=== PATIENT | female | born 1960 | race Caucasian/White ===

== ENCOUNTER 2019-11-20 10:36 | Inpatient (IN) | payer MEDICARE, SELFPAY ==
--- NOTE | ~2019-11-20 | US_ITS ---
EXAMINATION: US abdomen complete EXAM DATE: 11/22/2019 13:01 INDICATION: Pancreatitis, epigastric pain. TECHNIQUE: Multiple grayscale and Doppler images of the complete abdomen were obtained (by a technolo gist who performed the scan) and subsequently reviewed. There is no prior study for comparison. FINDINGS: The abdominal aorta is normal in caliber. Visualized portion IVC is patent. The pancreatic head a nd body are normal in appearance. The pancreatic tail is not visualized. The liver has normal echogenicity and contour. There are no focal liver lesions identified. There is no evidence of intrahepatic biliary duct dilation. Portal venous flow was seen in the hepatopedal , normal direction and has normal Doppler waveform. Common bile duct measures 5 mm, which is normal. The gallbladder wall is mildly thickened but only mi ldly distended. No sonographic evidence of pericholecystic fluid. There is cholelithiasis. Techno logist performing exam reports patient did not demonstrate sonographic Ibarra's sign. Please note th at this sign is less reliable in patients who have received pain medication. Right kidney: There is normal contour and echogenicity. It measures 10.8 x 5.0 x 4.7 centimeters. There are no focal renal lesions identified. There is no hydronephrosis. Left kidney: There is normal contour and echogenicity. It measures 11.3 x 3.9 x 5.2 centimeters. T here are no focal renal lesions identified. There is no hydronephrosis. The spleen measures 10.3 centimeters and is morphologically normal. IMPRESSION: Cholelithiasis, mild gallbladder wall thickening probably, could be partly under distenti on and/or reactive. No sonographic Ibarra's sign. If there is further clinical concern for cholecysti tis, consider HIDA scan. Reviewed, dictated and finalized at location B. IMPRESSION: Cholelithiasis, mild gallbladder wall thickening probably, could be partly under distention and/or reactive. No sonographic Ibarra's sign. If ther e is further clinical concern for cholecystitis, consider HIDA scan.
--- NOTE | ~2019-11-20 | CT_ITS ---
EXAMINATION: CT abdomen pelvis w con DATE: 11/20/2019 12:48 INDICATION: Abdomen pain. TECHNIQUE: Computed tomography (CT) of the abdomen and pelvis was performed with 100 cc Omnipaque 350 intravenous contrast. The dose-length product was 1477.12 mGy-cm. Automated exposure control and it erative reconstruction technique were employed. COMPARISON: No prior studies for comparison. FINDINGS: Lung bases are unremarkable. Heart size normal. No pleural or pericardial effusion. There are gallstones. The liver, spleen, pancreas, adrenal glands and right kidney are unremarkable. There is a subcentimeter hypodensity of the left kidney, most likely benign cysts. Nonobstructive bow el gas pattern. Colonic diverticulosis without evidence for diverticulitis. Bladder is unremarkable. No free air or free fluid. There is mild osteoarthritis of the hips. There is mild atherosclerosis. No lymphadenopathy. IMPRESSION: 1. No acute abdominal abnormality. 2: Cholelithiasis. Reviewed, dictated and finalized at location A.
[2019-11-20 11:14] VITALS: BP 142/78; PULSE 84; RESP 22; TEMP 36.6; O2SAT 97
--- NOTE | 2019-11-20 11:26 | ED.ABDPAIN ---
HPI - Abdominal Pain General Chief Complaint: Abdominal Pain Stated Complaint: abd pain Source: patient Mode of arrival: ambulatory Limitations: no limitations History of Present Illness HPI narrative: 59-year-old female with intense upper abdominal pain. Onset 2 days ago after eating fried chicken. Pain has been persistent, described as pressure and associated with nausea and multiple episodes of vomiting. Has vomited x3 today. She denies diarrhea. The pain is nonradiating; she has chronic upper back pain which has not recently changed. She has not had this before. Related Data Home Medications Medication Instructions Recorded Confirmed No Home Medications 11/20/19 11/20/19 Allergies Allergy/AdvReac Type Severity Reaction Status Date / Time No Known Allergies Allergy Verified 11/20/19 11:19 Review of Systems Constitutional: Constitutional: Denies chills and Denies fever(s) Eyes: Eyes: Denies change in vision ENT: Denies dysphagia Comments: chronic sore throat and acidic taste in mouth Cardiovascular: Cardiovascular: Denies chest pain Respiratory: Respiratory: Reports dyspnea (after vomiting only) Gastrointestinal: Gastrointestinal: Denies diarrhea Genitourinary: Genitourinary: Denies dysuria Musculoskeletal: Musculoskeletal: Denies joint swelling Integumentary/Breasts: Skin/Breast: Denies rash Neurologic: Reports headache(s) (chronic, no recent change) Psychiatric: Psychiatric: Reports depression (stable) Endocrine: Endocrine: Reports polydipsia Hematologic/Lymphatic: Hematologic/Lymphatic: Denies easy bleeding PMFSH Past Medical History Medical History (Updated 11/20/19 @ 14:58 by Damion Escamilla MD) Hypertension Surgical History Surgical History (Updated 11/20/19 @ 11:29 by Damion Escamilla MD) H/O: section Social History Social History (Updated 11/20/19 @ 14:45 by Damion Escamilla MD) Smoking packs per day: 1 Smoking cigarettes per day: 20.0 Years smoked: 40 Smoking pack-years: 40.00 Smoking status: Current every day smoker Alcohol intake: never Exam Narrative: Exam Narrative: Obese female appears uncomfortable. Const: Orientation/consciousness: patient oriented x3 HENMT: Mouth: Yes moist mucous membranes Eyes: Conjunctivae: conjunctivae normal Neck: Neck: no lymphadenopathy Chest: Chest palpation & inspection: normal inspection of the chest Resp: Effort & Inspection: normal respiratory effort Auscultation: clear to auscultation bilaterally Cardio: Rate: regular rate Rhythm: regular rhythm GI: GI Palp: Yes Tenderness to palpation present (GI) (epigastric, RLQ), Yes Guarding due to palpation present (GI) and No Rigid due to palpation Percussion: Yes normal to percussion Auscultation: absent bowel sounds : General: Yes no CVA tenderness Skin: General skin exam: normal color Rashes: no rashes Neuro: General: patient oriented x3 Extrem: General: normal to inspection, no pedal edema and edema Psych: Appearance: grossly normal Mental Status: mental status grossly normal Thought content: Yes Normal thought content present Course Course Emergency Course: Pain relief with morphine 4 mg IV with relief of nausea with ondansatron. At 2:30 PM pain rated #5-6/10. Dx. of acute pancreatitis explained. No previous hx of this. Does not drink alcohol. Vital Signs Vital signs: Vital Signs Temperature 36.6 C 11/20/19 11:14 Pulse Rate 84 11/20/19 11:14 Respiratory Rate 22 H 11/20/19 11:14 Blood Pressure 142/78 H 11/20/19 11:14 Pulse Oximetry 97 11/20/19 11:14 Temperature 36.6 C 11/20/19 11:14 Pulse Rate 75 11/20/19 13:33 Respiratory Rate 18 11/20/19 13:33 Blood Pressure 159/87 H 11/20/19 13:33 Pulse Oximetry 95 11/20/19 13:33 MDM - Abdominal Pain MDM Narrative Medical decision making narrative: Lipase over 12,000. Mild increase in AST/ALT/alk phos also related to pancreatitis. CT of abd/pel
[2019-11-20] MEDS: ONDANSETRON INJ 4 MG/2 ML VIAL IV PUSH (11:40)
[2019-11-20] MEDS: MORPHINE SULFATE 4 MG/ML INJ IV PUSH ×2 (11:40→14:25)
[2019-11-20] MEDS: LACTATED RINGERS 1,000 ML 999 ML IV CONT (11:42)
[2019-11-20 11:43] LABS: Basophils Absolute Auto 0.06 K/mm3 (0.00-0.10); Basophils Percent Auto 0.7 % (0.0-1.0); Eosinophils Absolute Auto 0.02 K/mm3 (0.02-0.50); Eosinophils Percent Auto 0.2 % (1.0-6.0); Hematocrit 40.8 % (35.0-49.0); Hemoglobin 13.5 g/dL (12.0-15.0); Immature Granulocyte Absolute 0.04 K/mm3 (0.00-0.00); Immature Granulocyte Percent A 0.4 % (0.0-0.0); Lymphocytes Absolute Auto 1.13 K/mm3 (1.10-4.50); Lymphocytes Percent Auto 12.6 % (18.0-42.0); Mean Corpuscular HGB Conc 33.1 g/dL (32.0-36.0); Mean Corpuscular Hemoglobin 32.5 pg (27.0-31.0); Mean Corpuscular Volume 98.1 fL (78.0-102.0); Mean Platelet Volume 9.7 fl (9.2-11.8); Monocytes Absolute Auto 0.57 K/mm3 (0.10-0.90); Monocytes Percent Auto 6.3 % (2.0-11.0); Neutrophils Absolute Auto 7.2 K/mm3 (1.7-7.2); Neutrophils Percent Auto 79.8 % (50.0-70.0); Platelet Count Result 262 K/mm3 (150-420); Red Blood Count 4.16 M/mm3 (4.20-5.40); Red Cell Distribution Width 13.6 % (11.6-14.4)
[2019-11-20 11:46] LABS: Add Urine Microscopic? YES; Appearance Urine Cloudy (Clear); Bilirubin Urine 1+ (Negative); Blood Urine Negative (Negative); Color Urine Amber (Yellow); Glucose Urine UA Negative (Negative); Ketones Urine Negative (Negative); Leukocyte Esterase Ur Negative (Negative); Nitrate Urine Negative (Negative); Protein Urine 1+ (Negative); Specific Grav Ur 1.015 (1.010-1.020)
[2019-11-20 11:59] LABS: RBC Urine None seen /hpf (0-2); Squamous Epithelial Cell Urine Many /hpf (Few); WBC Urine None seen /hpf (0-3)
[2019-11-20 12:00] LABS: Bacteria Urine 2+ /hpf; Mucus Urine Moderate /lpf
[2019-11-20 12:05] LABS: Alanine Aminotransferase 114 U/L (14-59); Albumin Level 3.3 g/dL (3.4-5.0); Alkaline Phosphatase 137 U/L (46-116); Anion Gap 11.1 mmol/L (7-16); Bilirubin,Total 1.1 mg/dL (0.00-1.00); Blood Urea Nitrogen 13 mg/dL (7-18); Calcium 8.7 mg/dL (8.5-10.1); Carbon Dioxide 29 mmol/L (21-32); Chloride 102 mmol/L (98-108); Estimated CRCL calculation 77 ml/min; Estimated Glomerular Filt Rate > 60; Glucose 122 mg/dL (70-99); Osmolality Calculated 287 mOsm/kg (285-295); Potassium 4.1 mmol/L (3.5-5.1); Sodium 138 mmol/L (136-145); Total Protein 7.2 g/dL (6.4-8.2)
[2019-11-20 12:06] LABS: Lipase 12012 U/L (73-393)
[2019-11-20 12:07] LABS: Aspartate Amino Transferase 195 U/L (15-37)
--- NOTE | 2019-11-20 13:16 | PC.NURSE ---
pt ambulatory to bathroom.
[2019-11-20 13:33] VITALS: BP 159/87; PULSE 75; RESP 18; O2SAT 95
--- NOTE | 2019-11-20 14:41 | PC.NURSE ---
RN CALLED 2ND FLOOR, JACKY ROSADO RN TO REQUEST INPATIENT ROOM. ROOM 205B PROVIDED AT 1440. REGISTRATION NOTIFIED.
[2019-11-20 15:30] VITALS: RESP 18; O2SAT 98
[2019-11-20 15:47] VITALS: BP 140/74; PULSE 68; RESP 18; TEMP 36.6; O2SAT 97
--- NOTE | 2019-11-20 16:00 | ADMGEN ---
This patient, Teresa Dhillon, was admitted to 2nd Floor Room 205-2. Patient/family oriented to hospital policies and general routines including ID bracelet, bed and alarms, visiting hours, pain management, procedures, bathroom and other care routines, personal items, smoking policy, room service/diet, and visiting hours. Valuables list has been completed. Information on how to activate the Rapid Response Team has been discussed. Patient/Family are encouraged to report perceived risks to care and to ask questions if they do not understand what they are told or what they should do. Full admission r/t pancreatitis Lipase elevated 12,012. Reports first time for this. Started last after eating fried chicken. Rates pain 3 after pain medication given x 2 in in ED. NPO status. LR at 250 ml/hr.
[2019-11-20 16:04] VITALS: BMI 42.7
[2019-11-20] MEDS: PANTOPRAZOLE SODIUM IV 40 MG VIAL IV PUSH (16:15)
[2019-11-20] MEDS: LACTATED RINGERS 1,000 ML 250 ML IV CONT ×2 (16:15→20:03)
[2019-11-20] MEDS: HYDROMORPHONE HCL 2 MG/ML VIAL 0.5 MG IV PUSH ×2 (16:25→20:29)
[2019-11-20 20:00] VITALS: BP 155/68; PULSE 66; RESP 20; TEMP 36.8; O2SAT 96
[2019-11-20 22:00] VITALS: BP 152/74; PULSE 70; RESP 20; TEMP 36.9; O2SAT 96
[2019-11-21] VITALS: BP 149/70; PULSE 74; RESP 20; TEMP 36.9; O2SAT 94
[2019-11-21] MEDS: LACTATED RINGERS 1,000 ML 250 ML IV CONT (00:18)
[2019-11-21] MEDS: HYDROMORPHONE HCL 2 MG/ML VIAL 0.5 MG IV PUSH ×2 (01:30→09:31)
--- NOTE | 2019-11-21 02:53 | PC.NURSE ---
Dr. Escamilla called for clarification of orders; New orders received and noted.
[2019-11-21] MEDS: LACTATED RINGERS 1,000 ML 150 ML IV CONT ×3 (04:48→18:32)
[2019-11-21 06:52] LABS: Basophils Absolute Auto 0.04 K/mm3 (0.00-0.10); Basophils Percent Auto 0.5 % (0.0-1.0); Eosinophils Absolute Auto 0.04 K/mm3 (0.02-0.50); Eosinophils Percent Auto 0.5 % (1.0-6.0); Hematocrit 36.7 % (35.0-49.0); Hemoglobin 12.1 g/dL (12.0-15.0); Immature Granulocyte Absolute 0.04 K/mm3 (0.00-0.00); Immature Granulocyte Percent A 0.5 % (0.0-0.0); Lymphocytes Absolute Auto 1.19 K/mm3 (1.10-4.50); Lymphocytes Percent Auto 15.5 % (18.0-42.0); Mean Corpuscular Hemoglobin 32.7 pg (27.0-31.0); Mean Corpuscular Volume 99.2 fL (78.0-102.0); Monocytes Absolute Auto 0.37 K/mm3 (0.10-0.90); Monocytes Percent Auto 4.8 % (2.0-11.0); Neutrophils Percent Auto 78.2 % (50.0-70.0); Platelet Count Result 219 K/mm3 (150-420); Red Cell Distribution Width 13.8 % (11.6-14.4); White Blood Count 7.7 K/mm3 (4.8-10.8)
[2019-11-21 07:12] LABS: Alanine Aminotransferase 146 U/L (14-59); Albumin Level 2.9 g/dL (3.4-5.0); Alkaline Phosphatase 137 U/L (46-116); Aspartate Amino Transferase 113 U/L (15-37); Bilirubin,Total 0.4 mg/dL (0.00-1.00); Blood Urea Nitrogen 10 mg/dL (7-18); Calcium 8.6 mg/dL (8.5-10.1); Carbon Dioxide 30 mmol/L (21-32); Chloride 104 mmol/L (98-108); Estimated CRCL calculation 94 ml/min; Estimated Glomerular Filt Rate > 60; Glucose 105 mg/dL (70-99); Osmolality Calculated 289 mOsm/kg (285-295); Sodium 140 mmol/L (136-145); Total Protein 6.4 g/dL (6.4-8.2)
[2019-11-21 07:30] LABS: CRP 1.3 mg/dL (0.0-0.9); Lipase 1048 U/L (73-393)
[2019-11-21 07:32] VITALS: BP 148/64; PULSE 67; RESP 18; TEMP 36.8; O2SAT 92
[2019-11-21] MEDS: PANTOPRAZOLE SODIUM IV 40 MG VIAL IV PUSH (09:21)
[2019-11-21] MEDS: ENOXAPARIN 40 MG/0.4 ML SYRINGE SUB-Q (09:21)
--- NOTE | 2019-11-21 09:28 | PC.NURSE ---
increase in pain level to a 5, requesting pain medication
--- NOTE | 2019-11-21 10:38 | PM.IMHP ---
H&P: HPI History of Present Illness Chief complaint: abd pain Narrative: Teresa Dhillon is a 59 year old female that presented to the ED complaining of abdominal pain with nause aand vomiting.Patient has a past medical history hypertension. according to patient on after eating fried chicken she started to have upper abdominal pains with nausea and vomiting. She continued to have these symptoms for a couple of days. She also noted that her pain worsened when she ate. Patient did not take anything at home to relieve her symptoms. while in the ED a CT was completed which was unremarkable, patient's liver function , CRP and lipase were all elevated. Vital signs 149/70, 74, 20, 98.4, 94% on room air. Patient is being admitted for pancreatitis. She will remain NPO and receive antiemesis medication. Patient continues to have abdominal pain but her nausea vomiting has resolved. She also complains of constipation today. Review of Systems Review of Systems: Narrative: CONSTITUTIONAL :No weight loss, fever, chills, weakness or fatigue.: HEENT: Eyes: No diplopia or blurred vision. ENT: No earache, sore throat or runny nose. CARDIOVASCULAR: No pressure, squeezing, strangling, tightness, heaviness or aching about the chest, neck, axilla or epigastrium. RESPIRATORY: No cough, shortness of breath, PND or orthopnea. GASTROINTESTINAL: patient complains nausea and vomiting with upper abdominal pain that worsens with eating GENITOURINARY: No dysuria, frequency or urgency. MUSCULOSKELETAL: No muscle, back pain, joint pain or stiffness. SKIN: No change in skin, hair or nails. NEUROLOGIC: No paresthesias, fasciculations, seizures or weakness. PSYCHIATRIC: No disorder of thought or mood. ENDOCRINE: No heat or cold intolerance, polyuria or polydipsia. HEMATOLOGICAL: No easy bruising or bleeding. [facility] Past Medical History Medical History (Updated 11/21/19 @ 11:12 by MARISOL Tyler) Hypertension Surgical History Surgical History (Updated 11/20/19 @ 11:29 by Damion Escamilla MD) H/O: section Social History Social History (Updated 11/20/19 @ 14:45 by Damion Escamilla MD) Smoking packs per day: 1 Smoking cigarettes per day: 20.0 Years smoked: 40 Smoking pack-years: 40.00 Smoking status: Current every day smoker Tobacco type: cigarettes Second hand tobacco smoke exposure: No Alcohol intake: unknown Substance use: never Gender identity (if verbalized by the patient): Female Sexual Orientation (if Verbalized by the Patient): Straight or Heterosexual Spiritual care concerns: No Meds Home Medications and Allergies Home Medications Medication Instructions Recorded Confirmed Type No Home Medications 11/20/19 11/20/19 History Allergies Allergy/AdvReac Type Severity Reaction Status Date / Time No Known Allergies Allergy Verified 11/20/19 11:19 Vital Signs Vital Signs - 24 hr 11/20/19 11:14 11/20/19 13:33 11/20/19 15:30 Temperature 97.8 F Pulse Rate 84 75 Respiratory Rate 22 H 18 18 Blood Pressure 142/78 H 159/87 H Pulse Oximetry 97 95 98 11/20/19 15:47 11/20/19 20:00 11/20/19 22:00 Temperature 97.8 F 98.3 F 98.4 F Pulse Rate 68 66 70 Respiratory Rate 18 20 20 Blood Pressure 140/74 155/68 H 152/74 H Pulse Oximetry 97 96 96 11/21/19 00:00 11/21/19 07:32 Temperature 98.4 F 98.3 F Pulse Rate 74 67 Respiratory Rate 20 18 Blood Pressure 149/70 H 148/64 H Pulse Oximetry 94 92 Exam Narrative: Exam Narrative: General: obese in bed no acute distress. HEENT: Normocephalic, atraumatic. PERRL, EOMI. Sclerae anicteric. Oral mucosa moist. Oropharynx clear. Neck: Supple. Respiratory: Lungs are clear to auscultation bilaterally. Cardiovascular: Regular rate and rhythm with S1-S2. Gastrointestinal: upper abdominal tenderness Skin: Warm, dry, and slightly pale.. No rash or lesions on limited exam. Extremities: No cyanosis, clubbing, or
--- NOTE | 2019-11-21 11:21 | PC.NURSE ---
napping at intervals, no evidence of pain, fluids infusing, tolerating po ice chips
--- NOTE | 2019-11-21 13:34 | PC.NURSE ---
napping off and on, no evidence of pain, no vomiting
[2019-11-21 15:10] VITALS: BP 171/78; PULSE 68; RESP 18; TEMP 37; O2SAT 95
--- NOTE | 2019-11-21 17:54 | PC.NURSE ---
states pain not bad , fluids infusing, remains NPO except for ice chips
[2019-11-22] VITALS: BP 151/73; PULSE 70; RESP 20; TEMP 37.2; O2SAT 95
[2019-11-22] MEDS: LACTATED RINGERS 1,000 ML 150 ML IV CONT (00:49)
[2019-11-22 05:45] LABS: Hematocrit 35.6 % (35.0-49.0); Hemoglobin 11.9 g/dL (12.0-15.0); Mean Corpuscular HGB Conc 33.4 g/dL (32.0-36.0); Mean Corpuscular Hemoglobin 32.9 pg (27.0-31.0); Mean Corpuscular Volume 98.3 fL (78.0-102.0); Mean Platelet Volume 9.9 fl (9.2-11.8); Platelet Count Result 216 K/mm3 (150-420); Red Blood Count 3.62 M/mm3 (4.20-5.40); Red Cell Distribution Width 13.4 % (11.6-14.4); White Blood Count 7.3 K/mm3 (4.8-10.8)
--- NOTE | 2019-11-22 06:00 | PC.NURSE ---
Nurse entered room and patient was sitting up in the chair. Patient says she slept very well and feels really good today. Denies pain/complaints/needs. Says her stomach is kind of tender but not hurting @ all. IV LR infusing to site in RFA without difficulty. No distress noted. Call light in reach.
[2019-11-22 06:05] LABS: Alanine Aminotransferase 98 U/L (14-59); Alkaline Phosphatase 132 U/L (46-116); Anion Gap 11.7 mmol/L (7-16); Aspartate Amino Transferase 42 U/L (15-37); Bilirubin,Total 0.3 mg/dL (0.00-1.00); Blood Urea Nitrogen 7 mg/dL (7-18); Calcium 8.6 mg/dL (8.5-10.1); Carbon Dioxide 30 mmol/L (21-32); Chloride 104 mmol/L (98-108); Estimated CRCL calculation 94 ml/min; Estimated Glomerular Filt Rate > 60; Glucose 84 mg/dL (70-99); Lipase 103 U/L (73-393); Magnesium 1.9 mg/dL (1.8-2.4); Osmolality Calculated 291 mOsm/kg (285-295); Potassium 3.7 mmol/L (3.5-5.1); Sodium 142 mmol/L (136-145); Total Protein 6.1 g/dL (6.4-8.2)
[2019-11-22 07:35] VITALS: BP 149/79; PULSE 67; RESP 18; TEMP 37.1; O2SAT 94
[2019-11-22 08:03] LABS: CRP 2.2 mg/dL (0.0-0.9)
[2019-11-22] MEDS: ENOXAPARIN 40 MG/0.4 ML SYRINGE SUB-Q (08:40)
[2019-11-22] MEDS: PANTOPRAZOLE SODIUM IV 40 MG VIAL IV PUSH (08:40)
[2019-11-22 10:11] LABS: Erythrocyte Sedimentation Rate 45 mm/hr (0-20)
--- NOTE | 2019-11-22 14:27 | PM.DS ---
DS: Admitting Diagnosis Admitting Diagnosis Admitting Diagnosis: Idiopathic acute pancreatitis without necrosis or infection DS: Discharge Diagnosis Discharge Diagnosis (1) Acute pancreatitis: Qualifiers: Acute pancreatitis complication: no infection or necrosis Pancreatitis type: idiopathic Qualified Code(s): K85.00 - Idiopathic acute pancreatitis without necrosis or infection Code(s): K85.90 - Acute pancreatitis without necrosis or infection, unspecified Status: Acute Assessment and Plan: ? as evidence by elevated lipase and abdominal pain and tenderness ? able to advanced diet as tolerated, tolerated clears the morning cup, tolerated full liquids at noon, tolerated regular meal in the evening with no pain no return of pain and no return of nausea vomiting ? [place] [id number] currently 100s WNL now ? CT of the abdomen unremarkable, ultrasound showed mild thickening of gallbladder, since patient is no longer having any nausea or vomiting or pain with food,advised patient to follow-up with GI and gave her copy of her ultrasound ? wbc's 7.7, no fevers, pain has resolved ? discontinued IV hydration, patient keeping up with oral hydration elevated liver enzymes that has improved since admission (2) Hypertension: Code(s): I10 - Essential (primary) hypertension Status: Acute Assessment and Plan: Hypertension blood pressures WNL VS as ordered Will adjust medication as needed. VS stable. (3) DVT prophylaxis: Code(s): Z29.9 - Encounter for prophylactic measures, unspecified Status: Acute Assessment and Plan: continue Lovenox (4) Nausea & vomiting: Code(s): R11.2 - Nausea with vomiting, unspecified Status: Acute Assessment and Plan: secondary to pancreatitis - RESOLVED. continue Zofran and Protonix. encouraged patient to continue keeping up with oral hydration after discharge advised patient to f/u with PCP and GI specialist in 1-14 days. (5) Elevated lipase: Code(s): R74.8 - Abnormal levels of other serum enzymes Status: Acute Assessment and Plan: lipase elevated secondary to pancreatitis repeat lipase in the a.m. was WNL, 100s. RESOLVED. DS: Summary Time Spent with Patient Time attestation: Total time spent providing and/or coordinating discharge services:>90 minutes Exam Narrative: Exam Narrative: General: obese in bed no acute distress. Const: General: comfortable and no acute distress Orientation/consciousness: patient oriented x3 HENMT: Mouth: Yes moist mucous membranes Eyes: General: appearance normal, both eyes and all related structures Conjunctivae: conjunctivae normal Pupils: Equal, round and reactive pupils present EOM: EOMs intact bilaterally Neck: Neck: no lymphadenopathy Chest: Chest palpation & inspection: normal inspection of the chest Resp: Effort & Inspection: normal respiratory effort Auscultation: clear to auscultation bilaterally Cardio: Rate: regular rate Rhythm: regular rhythm GI: Inspection: normal to inspection, non-distended, no incisions, Pannus present and obesity GI Palp: Yes abdominal tenderness ( slight epigastric tenderness), Yes Soft to palpation, No Guarding due to palpation present (GI), No Ascites present and No Rebound tenderness present Auscultation: normal bowel sounds Rectal Exam: deferred : General: Yes no CVA tenderness Back/Spine/Pelvis: Back: no CVA tenderness Skin: General skin exam: normal color Rashes: no rashes Wounds: no wounds Neuro: General: patient oriented x3 and gait normal Sensory Exam: normal sensation Extrem: General: normal to inspection, normal exam except as noted, no pedal edema, edema ( bilateral obesity with generalized edema) and pedal edema ( bilateral obesity with generalized edema) Right upper extremity: no cyanosis Left upper extremity: no cyanosis Right lower
[2019-11-22 15:22] LABS: Hemoglobin A1C 6.2 % (<5.7)
[2019-11-22 15:27] VITALS: BP 182/79; PULSE 62; RESP 18; TEMP 37.2; O2SAT 94
== END 2019-11-22 18:15 | disposition home or self-care (01) | DRG 440 ==
LOC: CHSED 10:48 → CHS2ND 14:56
PROVIDERS: Nurse Practitioner; Admitting Provider Family Medicine; Emergency Provider Family Medicine; PCP Internal Medicine; Visit Provider Family Medicine
DX: K85.90 Acute pancreatitis without necrosis or infection, unspecified (principal); K80.20 Calculus of gallbladder without cholecystitis without obstruction; M54.6 Pain in thoracic spine; G89.29 Other chronic pain; I10 Essential (primary) hypertension; F17.210 Nicotine dependence, cigarettes, uncomplicated
CPT/HCPCS: 36415; 74177; 76700; 80053; 81001; 83036; 83605; 83690; 83735; 85025; 85027; 85652; 86038; 86140; 87086; 87088; 96361; 96374; 96375; 96376; 99285; A9270; C9113; J1170; J1650; J2270; J2405; J7120; Q9965

== ENCOUNTER 2019-12-26 21:50 | Emergency (ER) | payer MEDICARE, SELFPAY ==
[2019-12-26 22:10] VITALS: BP 169/95; PULSE 86; RESP 20; TEMP 36.7; O2SAT 97
--- NOTE | 2019-12-26 22:48 | ED.ABDPAIN ---
HPI - Abdominal Pain General Chief Complaint: Abdominal Pain Stated Complaint: pancreatitis Time Seen by Provider: 12/26/19 22:48 Source: patient Mode of arrival: ambulatory Limitations: no limitations History of Present Illness HPI narrative: 59-year-old woman with history of pancreatitis comes in today complaining of epigastric pain which started after eating dinner this evening. Patient states that her pain has since improved but she was concerned that her pancreatitis was coming back. She states that she has abnormal ultrasound of the gallbladder for which she is to follow up with primary care doctor this week. Ultrasound the gallbladder on 11/21 shows some mild gallbladder wall thickening and cholelithiasis. No Ibarra sign. she denies nausea, fever, vomiting, diarrhea, rash, black or bloody stools, lightheadedness, dyspnea or chest pain. MD elicited complaint: abdominal pain Pertinent past history: other ( pancreatitis) Onset (ago): hour(s) (3) Pain Consistency: now resolved Location: epigastric Severity: moderate Quality: cramping and sharp Radiation: none Migration to: no migration Exacerbating factors: nothing Relieving factors: nothing Context: confirms history of similar episodes Related Data Allergies Allergy/AdvReac Type Severity Reaction Status Date / Time No Known Allergies Allergy Verified 11/20/19 11:19 Review of Systems Constitutional: Constitutional: Denies chills and Denies fatigue Eyes: Eyes: Denies change in vision and Denies photophobia ENT: Denies dysphagia, Denies nasal congestion and Denies sore throat Cardiovascular: Cardiovascular: Denies chest pain and Denies radiating jaw, neck or arm pain Respiratory: Respiratory: Denies cough, Denies dyspnea and Denies wheezing Gastrointestinal: Gastrointestinal: Reports abdominal pain ( now resolved), Denies heartburn, Denies diarrhea, Denies nausea and Denies vomiting Genitourinary: Genitourinary: Denies nocturia and Denies dysuria Musculoskeletal: Musculoskeletal: Denies back pain, Denies arthralgias and Denies joint swelling Integumentary/Breasts: Skin/Breast: Denies pruritus, Denies erythema and Denies rash Neurologic: Denies vertigo, Denies dizziness and Denies syncope Hematologic/Lymphatic: Hematologic/Lymphatic: Denies easy bleeding and Denies easy bruising Allergic/Immunologic: Allergic/Immunologic: Denies lip swelling and Denies wheezing PMFSH Past Medical History Medical History Hypertension Surgical History Surgical History H/O: section Social History Social History Smoking packs per day: 1 Smoking cigarettes per day: 20.0 Years smoked: 40 Smoking pack-years: 40.00 Smoking status: Current every day smoker Tobacco type: cigarettes Second hand tobacco smoke exposure: No Alcohol intake: unknown Substance use: never Gender identity (if verbalized by the patient): Female Spiritual care concerns: No Exam Const: General: healthy appearing, no acute distress and alert Nutritional Appearance: obese Orientation/consciousness: patient oriented x3 Limitations: no limitations HENMT: Head: normal to inspection Face and sinus: normal facial exam Mouth: Yes moist mucous membranes Throat: posterior oropharynx normal and uvula midline Eyes: Conjunctivae: conjunctivae normal EOM: EOMs intact bilaterally Neck: Neck: normal visual inspection and no meningeal signs Resp: Effort & Inspection: normal respiratory effort and not labored Auscultation: clear to auscultation bilaterally, no rales, no rhonchi and no wheezes Cardio: Rate: regular rate Rhythm: regular rhythm Heart sounds: no murmurs GI: Inspection: non-distended GI Palp: Yes Soft to palpation, No Tenderness to palpation present (GI), No Guarding due to palpation present (GI) a
--- NOTE | 2019-12-26 22:49 | ECG_ITS ---
Measurements Intervals [place] Rate: 75 P: 51 OR: 170 QRS: 35 QRSD: 82 T: 80 QT: 413 QTc: 462 Interpretive Statements SINUS RHYTHM RSR' IN V1 OR V2, PROBABLY NORMAL VARIANT LOW QRS VOLTAGE IN PRECORDIAL LEADS BORDERLINE ST-T WAVE ABNORMALITY- HIGH LATERAL LEADS BORDERLINE ECG Electronically Signed On 12-27-2019 7:48:28 CDT by Monster Mcfarland D.O.
[2019-12-26] MEDS: ONDANSETRON HCL ODT 4 MG TABLET PO (23:10)
--- NOTE | 2019-12-26 23:21 | PC.NURSE ---
REPORT PROVIDED TO JORGE ROBERT RN
[2019-12-26 23:56] LABS: Basophils Absolute Auto 0.06 K/mm3 (0.00-0.10); Basophils Percent Auto 0.6 % (0.0-1.0); Eosinophils Absolute Auto 0.09 K/mm3 (0.02-0.50); Eosinophils Percent Auto 0.9 % (1.0-6.0); Hematocrit 38.2 % (35.0-49.0); Hemoglobin 12.4 g/dL (12.0-15.0); Immature Granulocyte Absolute 0.03 K/mm3 (0.00-0.00); Immature Granulocyte Percent A 0.3 % (0.0-0.0); Lymphocytes Absolute Auto 2.08 K/mm3 (1.10-4.50); Lymphocytes Percent Auto 21.9 % (18.0-42.0); Mean Corpuscular HGB Conc 32.5 g/dL (32.0-36.0); Mean Corpuscular Hemoglobin 32.5 pg (27.0-31.0); Mean Platelet Volume 9.7 fl (9.2-11.8); Monocytes Absolute Auto 0.63 K/mm3 (0.10-0.90); Monocytes Percent Auto 6.6 % (2.0-11.0); Neutrophils Absolute Auto 6.6 K/mm3 (1.7-7.2); Neutrophils Percent Auto 69.7 % (50.0-70.0); Platelet Count Result 257 K/mm3 (150-420); Red Blood Count 3.82 M/mm3 (4.20-5.40); Red Cell Distribution Width 14.4 % (11.6-14.4); White Blood Count 9.5 K/mm3 (4.8-10.8)
[2019-12-27 00:06] VITALS: BP 140/88; PULSE 80; RESP 16
[2019-12-27 00:12] LABS: Lactic Acid Reflex 2.6 mmol/L (0.4-2.0)
[2019-12-27 00:16] LABS: Add Urine Microscopic? NO; Appearance Urine Clear (Clear); Bilirubin Urine Negative (Negative); Blood Urine Negative (Negative); Color Urine Yellow (Yellow); Glucose Urine UA Negative (Negative); Ketones Urine Negative (Negative); Leukocyte Esterase Ur Negative LEU/UL (Negative); Nitrate Urine Negative (Negative); Protein Urine Negative (Negative); Specific Grav Ur 1.015 (1.010-1.020); pH Urine 6.5 (5.0-8.0)
[2019-12-27 00:22] LABS: Alanine Aminotransferase 60 U/L (14-59); Albumin Level 3.2 g/dL (3.4-5.0); Alkaline Phosphatase 134 U/L (46-116); Anion Gap 14.1 mmol/L (7-16); Aspartate Amino Transferase 112 U/L (15-37); Bilirubin,Total 0.3 mg/dL (0.00-1.00); Blood Urea Nitrogen 17 mg/dL (7-18); Calcium 8.9 mg/dL (8.5-10.1); Carbon Dioxide 25 mmol/L (21-32); Chloride 106 mmol/L (98-108); Estimated CRCL calculation 70 ml/min; Estimated Glomerular Filt Rate 58; Glucose 128 mg/dL (70-99); Lipase 74 U/L (73-393); Osmolality Calculated 295 mOsm/kg (285-295); Potassium 4.1 mmol/L (3.5-5.1); Sodium 141 mmol/L (136-145); Total Protein 6.9 g/dL (6.4-8.2)
[2019-12-27 00:24] LABS: Troponin I < 0.02 ng/mL (0.00-0.056)
[2019-12-27 01:14] VITALS: BP 130/88; PULSE 68; RESP 18; TEMP 36.4
--- NOTE | 2019-12-27 01:16 | PC.NURSE ---
instructions given, calling for ride
[2019-12-27 02:51] LABS: Reflex Lactic Acid Yes or No Add Lactic
== END 2019-12-27 01:18 | disposition home or self-care (01) ==
PROVIDERS: Emergency Provider Emergency Medicine; PCP Internal Medicine
DX: R10.13 Epigastric pain (principal)
CPT/HCPCS: 36415; 80053; 81003; 83605; 83690; 84484; 85025; 93005; 99283; 99284; A9270

== ENCOUNTER 2020-01-17 10:46 | Emergency (ER) | payer MEDICARE, SELFPAY ==
--- NOTE | ~2020-01-17 | CT_ITS ---
EXAMINATION: CT abdomen pelvis w con EXAM DATE: 01/17/2020 12:10 INDICATION: Abdominal pain. Vaginal bleeding. States having gallbladder removal. TECHNIQUE: Spiral CT of the abdomen and pelvis was performed following intravenous injection of 100 m L Omnipaque 350. Axial, coronal and sagittal images were reviewed. The dose-length product (DLP) fo r this examination was 1369.39 mGy-cm. The exposure was tailored according to patient size (auto mA exposure control), and iterative reconstruction (ASIR) was used as additional dose reduction techniqu e. Comparison is made to prior examination from 11/20/2019. FINDINGS: Some left adrenal gland nodularity, hyperplasia or small adenomas. The liver, spleen, adre nal glands and pancreas are otherwise unremarkable. There are gallstones within an otherwise unremar kable gallbladder. No evidence of obstructive biliary disease. Portal and splenic veins are patent. Kidneys enhance symmetrically. There is no hydronephrosis. The uterus is unremarkable. The sia dder is collapsed with Ryan catheter balloon anchor inside. There is no retroperitoneal or pelvic l ymphadenopathy. There is moderate scattered arteriosclerotic disease. The appendix is normal. The stomach and small bowel are unremarkable. There is expected amount of c olonic stool. There is mild sigmoid colonic diverticulosis. There is no adjacent inflammatory change to suggest diverticulitis. The heart is normal in size. There are no pericardial or pleural effusio ns. The lung bases are unremarkable. The bones are unremarkable. IMPRESSION: 1. No acute intra-abdominal findings. 2. Mild sigmoid diverticulosis. 3. Cholelithiasis. 4. Left adrenal hyperplasia or adenomas. Reviewed, dictated and finalized at location B.
--- NOTE | ~2020-01-17 | US_ITS ---
EXAMINATION: US right upper quadrant EXAM DATE: 01/17/2020 12:13 INDICATION: Epigastric pain. TECHNIQUE: Multiple grayscale and Doppler images of the abdomen right upper quadrant were obtained (b y a technologist who performed the scan) and subsequently reviewed. Comparison is made to prior exami nation from 11/22/2019. FINDINGS: The pancreatic head and body are normal in appearance. The pancreatic tail is not visualized. The l iver has normal echogenicity and contour. There are no focal liver lesions identified. There is no evidence of intrahepatic biliary duct dilation. Portal venous flow was seen in the hepatopedal, nor mal direction and has normal Doppler waveform. No right-sided hydronephrosis. Common bile duct measures 5-6 mm, which is upper limits of normal. The gallbladder wall is normal in thickness, with expected amount of distention. No sonographic evidence of pericholecystic fluid. Th ere is poorly calcified cholelithiasis. Technologist performing exam reports patient did not demons trate sonographic Ibarra's sign. Please note that this sign is less reliable in patients who have re ceived pain medication. IMPRESSION: 1. Cholelithiasis. Reviewed, dictated and finalized at location B. IMPRESSION: 1. Cholelithiasis.
[2020-01-17 10:59] VITALS: BP 155/93; PULSE 81; RESP 16; TEMP 36.7; O2SAT 96
[2020-01-17 11:17] LABS: Basophils Absolute Auto 0.05 K/mm3 (0.00-0.10); Basophils Percent Auto 0.5 % (0.0-1.0); Eosinophils Absolute Auto 0.12 K/mm3 (0.02-0.50); Eosinophils Percent Auto 1.3 % (1.0-6.0); Immature Granulocyte Absolute 0.04 K/mm3 (0.00-0.00); Immature Granulocyte Percent A 0.4 % (0.0-0.0); Lymphocytes Absolute Auto 1.83 K/mm3 (1.10-4.50); Lymphocytes Percent Auto 19.6 % (18.0-42.0); Mean Corpuscular HGB Conc 32.5 g/dL (32.0-36.0); Mean Corpuscular Hemoglobin 32.4 pg (27.0-31.0); Mean Corpuscular Volume 99.8 fL (78.0-102.0); Mean Platelet Volume 9.7 fl (9.2-11.8); Monocytes Absolute Auto 0.41 K/mm3 (0.10-0.90); Monocytes Percent Auto 4.4 % (2.0-11.0); Neutrophils Absolute Auto 6.9 K/mm3 (1.7-7.2); Neutrophils Percent Auto 73.8 % (50.0-70.0); Platelet Count Result 253 K/mm3 (150-420); Red Blood Count 4.01 M/mm3 (4.20-5.40); Red Cell Distribution Width 14.1 % (11.6-14.4); White Blood Count 9.3 K/mm3 (4.8-10.8)
[2020-01-17 11:18] LABS: Appearance Urine Clear (Clear); Bilirubin Urine Negative (Negative); Color Urine Yellow (Yellow); Glucose Urine UA Negative (Negative); Ketones Urine Negative (Negative); Leukocyte Esterase Ur Negative LEU/UL (Negative); Nitrate Urine Negative (Negative); Protein Urine Negative (Negative); Urobilinogen Urine 0.2 mg/dL (0.2-1.0); pH Urine 7.5 (5.0-8.0)
--- NOTE | 2020-01-17 11:23 | ECG_ITS ---
Measurements Intervals [place] Rate: 70 P: 58 SD: 161 QRS: 36 QRSD: 94 T: 77 QT: 432 QTc: 466 Interpretive Statements SINUS RHYTHM INCOMPLETE RIGHT BUNDLE BRANCH BLOCK BORDERLINE ST-T WAVE ABNORMALITY- HIGH LATERAL LEADS BORDERLINE ECG Electronically Signed On 01-17-2020 12:06:36 CDT by Monster Mcfarland D.O.
[2020-01-17 11:24] LABS: Add Urine Microscopic? YES; Bacteria Urine Trace /hpf; Blood Urine Trace-Intact (Negative); RBC Urine 0-2 /hpf (0-2); Squamous Epithelial Cell Urine Rare /hpf (Few); WBC Urine None seen /hpf (0-3)
[2020-01-17 11:32] LABS: Alanine Aminotransferase 22 U/L (14-59); Albumin Level 3.4 g/dL (3.4-5.0); Alkaline Phosphatase 103 U/L (46-116); Anion Gap 12 mmol/L (8-16); Aspartate Amino Transferase 18 U/L (15-37); Bilirubin,Total 0.3 mg/dL (0.00-1.00); Blood Urea Nitrogen 5 mg/dL (7-18); Calcium 9.1 mg/dL (8.5-10.1); Carbon Dioxide 24 mmol/L (21-32); Chloride 106 mmol/L (98-108); Estimated Glomerular Filt Rate 58; Glucose 118 mg/dL (70-99); Osmolality Calculated 292 mOsm/kg (285-295); Potassium 3.5 mmol/L (3.5-5.1); Sodium 142 mmol/L (136-145); Total Protein 7.4 g/dL (6.4-8.2)
[2020-01-17 11:36] LABS: Lipase 35 U/L (73-393)
[2020-01-17 11:43] LABS: Partial Thromboplastin Time 26.6 SEC (22.3-31.6)
[2020-01-17 11:47] LABS: Lactic Acid 1.9 mmol/L (0.4-2.0)
[2020-01-17] MEDS: SODIUM CHLORIDE 0.9% IV 1,000 ML 999 ML IV CONT (12:09)
[2020-01-17] MEDS: ONDANSETRON INJ 4 MG/2 ML VIAL IV PUSH (12:10)
[2020-01-17] MEDS: MORPHINE SULFATE 4 MG/ML INJ IV PUSH (12:10)
--- NOTE | 2020-01-17 12:29 | ED.ABDPAIN ---
HPI - Abdominal Pain General Chief Complaint: Abdominal Pain Stated Complaint: ambulance Time Seen by Provider: 01/17/20 10:50 Source: patient Mode of arrival: EMS Limitations: no limitations History of Present Illness HPI narrative: this is a 59-year-old female morbidly obese with some episodes of right upper quadrant abdominal pain has a history of gallstones, and a history of pancreatitis with some nausea was brought in via EMS with abdominal pain pain is rated about a 6/10, has been out of pain medication at home and out of her proton pump inhibitors. Patient is scheduled for outpatient cholecystectomy toward the end of the month. Currently there is no fever or chills no shortness of breath, no chest pain no diarrhea constipation no dysuria. MD elicited complaint: abdominal pain Pertinent past history: none Onset (ago): week(s) Pain Consistency: intermittent Location: RUQ Severity: similar to previous episodes Quality: dull Radiation: none Migration to: no migration Exacerbating factors: medication Relieving factors: nothing Related Data Allergies Allergy/AdvReac Type Severity Reaction Status Date / Time strawberry Allergy Mild Rash Verified 01/06/20 10:18 Review of Systems Review of Systems: All systems reviewed & are unremarkable except as noted in HPI and below PMFSH Past Medical History Medical History GERD (gastroesophageal reflux disease) History of acute pancreatitis Hypertension Surgical History Surgical History H/O: section Family History Family History Mother Cerebrovascular accident Dementia Father Heart disease CHF (congestive heart failure) Sibling Malignant neoplasm of prostate Other Heart disease Cerebrovascular accident Hypertension Cancer Social History Social History Smoking packs per day: 1 Smoking cigarettes per day: 20.0 Years smoked: 40 Smoking pack-years: 40.00 Smoking status: Current every day smoker Tobacco type: cigarettes Second hand tobacco smoke exposure: No Alcohol intake: unknown Substance use: never Gender identity (if verbalized by the patient): Female Spiritual care concerns: No Exam Const: General: no acute distress Course Course Emergency Course: Patient pain level has improved with pain medication and nausea improved wth Zofran. Patient received IV fluids and was and why advised to call her surgeon with the possibility of performing her outpatient surgery sooner. patient concerned of a vaginal bleed but after inspection there is currently no vaginal bleeding and advised patient to follow-up with her OBGYN. Vital Signs Vital signs: Vital Signs Temperature 36.7 C 01/17/20 10:59 Pulse Rate 81 01/17/20 10:59 Respiratory Rate 16 01/17/20 10:59 Blood Pressure 155/93 H 01/17/20 10:59 Pulse Oximetry 96 01/17/20 10:59 Temperature 36.7 C 01/17/20 10:59 Pulse Rate 81 01/17/20 10:59 Respiratory Rate 16 01/17/20 10:59 Blood Pressure 155/93 H 01/17/20 10:59 Pulse Oximetry 96 01/17/20 10:59 MDM - Abdominal Pain Lab Data Result diagrams: 01/17/20 11:13 01/17/20 11:13 Labs: Lab Results 01/17/20 01/17/20 01/17/20 Range/Units 10:58 11:11 11:11 WBC (4.8-10.8) K/mm3 RBC (4.20-5.40) M/mm3 Hgb (12.0-15.0) g/dL Hct (35.0-49.0) % MCV (78.0-102.0) fL MCH (27.0-31.0) pg MCHC (32.0-36.0) g/dL RDW (11.6-14.4) % Plt Count (150-420) K/mm3 MPV (9.2-11.8) fl Immature Gran % (Auto) (0.0-0.0) % Neut % (Auto) (50.0-70.0) % Lymph % (Auto) (18.0-42.0) % [place] % (Auto) (2.0-11.0) % Eos % (Auto) (1.0-6.0) % Baso % (Auto) (0.0-1.0) % Lymph # (Auto)
[2020-01-17 12:46] VITALS: BP 164/89; PULSE 87; RESP 16; O2SAT 95
== END 2020-01-17 12:50 | disposition home or self-care (01) ==
PROVIDERS: Emergency Provider Emergency Medicine; PCP Internal Medicine
DX: K80.80 Other cholelithiasis without obstruction (principal); R10.11 Right upper quadrant pain
CPT/HCPCS: 36415; 74177; 76705; 80053; 81001; 83605; 83690; 85025; 85610; 85730; 87040; 93005; 96361; 96374; 96375; 99281; 99284; J2270; J2405; J7030; Q9965

== ENCOUNTER 2020-01-28 00:26 | Outpatient (CLI) | payer MEDICARE, SELFPAY ==
[2020-01-28 19:29] LABS: SARS-CoV-2 RNA PCR Negative
== END 2020-01-28 00:27 | disposition home or self-care (01) ==
LOC: ANHCOVIDDT 00:26
PROVIDERS: PCP Internal Medicine; Visit Provider Surgery
DX: Z01.812 Encounter for preprocedural laboratory examination (principal); Z20.828 Contact with and (suspected) exposure to other viral communicable diseases
CPT/HCPCS: 87635; C9803; U0003

== ENCOUNTER 2020-01-28 08:24 | Outpatient (CLI) | payer MEDICARE, SELFPAY ==
[2020-01-28 09:13] LABS: Amylase 74 U/L (30-110)
== END 2020-01-28 08:25 | disposition home or self-care (01) ==
PROVIDERS: PCP Internal Medicine; Visit Provider Surgery
DX: K80.20 Calculus of gallbladder without cholecystitis without obstruction (principal); Z01.812 Encounter for preprocedural laboratory examination
CPT/HCPCS: 36415; 82150; 86850; 86900; 86901; 87635; C9803; U0003

== ENCOUNTER 2020-02-02 10:51 | Observation (INO) | payer MEDICARE, SELFPAY ==
[2020-01-18 13:10] VITALS: BMI 39.0
[2020-01-31] VITALS (19 sets, daily range): BP systolic 122–151; BP diastolic 70–83; PULSE 58–89; RESP 16–21; TEMP 36–36.9; O2SAT 92–99; BMI 44.1
--- NOTE | 2020-01-31 09:04 | WPDANESEPP ---
Anes - Eval Pre Procedure Procedure: Operation Date: 01/31/20 12:00 Proposed Procedures p Laparoscopic Cholecystectomy With Introperative Cholangiogram, Possible Open - Lon Gonzales DO Date/Time: 01/31/20 09:04 Pre Op Diagnosis: Symptomatic Cholelithiasis Patient Data Age: 59 Gender: F Height: 5 ft 6 in Weight: 109.77 kg Allergies Allergy/AdvReac Type Severity Reaction Status Date / Time strawberry Allergy Mild Rash Verified 01/18/20 13:11 Home Medications Medication Instructions Recorded Confirmed Type pantoprazole [Protonix] 40 mg PO QAM 28 Days #28 tablet 11/22/19 01/18/20 Rx ondansetron HCl [Zofran] 4 mg PO Q6H PRN #10 tablet 01/17/20 01/18/20 Rx oxycodone-acetaminophen [Percocet] 1 tablet PO Q6H PRN #20 tablet 01/17/20 01/18/20 Rx Patient hx anesthesia problems: none Family hx anesthesia problems: none PMFSH Past Medical History Medical History Acute pancreatitis BMI 40.0-44.9, adult DVT prophylaxis Elevated lipase GERD (gastroesophageal reflux disease) History of acute pancreatitis Hypertension Hypertension Nausea & vomiting Symptomatic cholelithiasis Tobacco abuse Surgical History Surgical History H/O: section Family History Family History Mother Cerebrovascular accident Dementia Father Heart disease CHF (congestive heart failure) Sibling Malignant neoplasm of prostate Other Heart disease Cerebrovascular accident Hypertension Cancer Social History Social History Smoking packs per day: 1 Smoking cigarettes per day: 20.0 Years smoked: 40 Smoking pack-years: 40.00 Smoking status: Current every day smoker Tobacco type: cigarettes Second hand tobacco smoke exposure: No Alcohol intake: unknown Substance use: never Gender identity (if verbalized by the patient): Female Spiritual care concerns: No Exam Day of Procedure 01/31/20 09:04 Patient weight: obese Neurological: alert and oriented Risks: SINUS RHYTHM INCOMPLETE RIGHT BUNDLE BRANCH BLOCK BORDERLINE ST-T WAVE ABNORMALITY- HIGH LATERAL LEADS BORDERLINE ECG
--- NOTE | 2020-01-31 11:58 | WPDHPUPDATE1 ---
History and Physical Update Update Date/Time: 01/31/20 11:58 History and Physical has been reviewed, including an updated exam of the patient. There are NO changes in the patient's condition. Risks, benefits, and alternatives have been discussed and questions answered. Patient agrees to proceed with procedure.
[2020-01-31] MEDS: LACTATED RINGERS 1,000 ML 30 ML IV CONT ×2 (12:32→14:29)
[2020-01-31] MEDS: KETOROLAC 15 MG/ML VIAL (*BKC) IV PUSH (12:33)
[2020-01-31] MEDS: ACETAMINOPHEN 500 MG TABLET 1000 MG PO (12:33)
--- NOTE | 2020-01-31 12:49 | WPDANESEFPP ---
Anes - Eval Final PreProcedure Day of Procedure 01/31/20 12:49 Patient weight: morbidly obese Heart: regular rate and rhythm Lungs: clear to auscultation Airway: Mallampati scale class II, special considerations poor dentition and other (discussed oral trauma as risk of intubation based on her serious tooth decay and weak teeth, she agrees to proceed) Neurological: alert and oriented Last oral intake: >/= 8 hours Emergent: no Anesthetic plan: proceed Anesthesia type and monitoring: general ETT and standard monitoring Informed Consent: The patient's anesthetic plan and its attendant risks including oral injury and damage/loss of teeth and benefits were discussed with the patient. Questions were solicited and answers provided to the satisfaction of the patient.
[2020-01-31 13:04] LABS: Amylase 60 U/L (30-110)
[2020-01-31] MEDS: ceFAZolin 2 GM/D5W 50 ML 2 GM/50 ML BAG IVPB (13:26)
[2020-01-31] MEDS: BUPIVACAINE/EPINEPHRINE 0.5% 30 ML VIAL INFILTRATE (13:32)
--- NOTE | 2020-01-31 14:29 | PM.PROC ---
Procedure Note - Detailed Date of procedure: 01/31/20 Pre-op diagnosis: Symptomatic Cholelithiasis, pancreatitis Post-op diagnosis: other (choledocholithiasis) Procedure performed: Laparoscopic Cholecystectomy with intraoperative cholangiogram Description of procedure: Procedure as well as risks, benefits, and alternatives were discussed with patient. Written consent was obtained and placed in chart prior to procedure. The patient was brought back to surgical suite. Patient was placed in supine position on operating table. Time-out was done to confirm patient and procedure. Patient was then intubated by the anesthesia department. Abdomen was prepped and draped in sterile fashion using chlorhexidine prep. 0.5% bupivacaine with epinephrine was infiltrated at each site of incision. A 5 millimeter incision was made near the umbilicus, and a 5 millimeter Optiview trocar was advanced through the abdominal layers under direct visualization. Once inside the abdominal cavity, carbon dioxide was insufflated to create a pneumoperitoneum. The camera was inserted and the abdomen was inspected. No immediate abnormalities were identified. The patient was placed in reverse Trendelenburg position and rotated slightly to the left. An 11 millimeter incision was made in the subxiphoid region, and an 11 millimeter trocar was inserted under direct visualization. Two 5 millimeter incisions were made in the right upper quadrant, and two 5 millimeter trocars were inserted under direct visualization. The gallbladder was identified and grasped at the fundus and retracted superiorly. It was then grasped at the infundibulum retracted laterally. Careful dissection around the neck of the gallbladder was performed using blunt dissection with a [place] grasper and hook electrocautery. The cystic duct was identified, and a window was created behind it. The cystic artery was also identified and a window was created behind it. The critical view of safety was identified, visualizing the cystic duct running directly into the neck of the gallbladder, and the cystic artery running directly into the wall of the gallbladder. A Villatoro clamp was placed across the neck of the gallbladder and the Villatoro cholangiocatheter was advanced into the distal neck of the gallbladder. Bile was able to be aspirated and the catheter flushed with saline with ease. The patient was flattened out in bed and fluoroscopy was used to obtain a cholangiogram with Omnipaque contrast. The patient was placed back in reverse Trendelenburg position. A 5 millimeter clip senior program planner was then used to place 2 clips proximally and 1 clip distally on both the cystic duct and cystic artery. They were then both transected using endoscopic scissors. Once safely away from the gala hepatitis, the gallbladder was dissected free from the liver bed using hook electrocautery. Hemostasis was achieved along the way. The gallbladder was removed completely and then removed through the subxiphoid port. The liver bed was then inspected. Hemostasis appeared adequate, and our clips appeared secure. The area was gently irrigated with sterile saline. No other abnormalities were seen. The patient was flattened out in bed, and 1 final inspection was made around the abdominal cavity. The subxiphoid port was removed, and a Mesfin Christopher cone was used to approximate the fascia with an 0-Vicryl simple interrupted suture. The remaining ports were then removed under direct visualization, the camera was removed, and the pneumoperitoneum was released. The skin of the incisions was approximated using 4-0 Monocryl subcuticular sutures. Exofin glue was applied on top. The patient was then awakened from anesthesia, extubated, and transferred to recovery. Anesthesia: GETA and local (0.5% bupivicaine with epi) Surgeon: Lon Gonzales DO Estimated blood loss (mL): 5 Drains: No Packing: No Pathology: yes Complications: No immediate complications Conditio
--- NOTE | 2020-01-31 18:25 | ADMGEN ---
This patient, Teresa Dhillon, was admitted to Medical Room 343-01. Patient/family oriented to hospital policies and general routines including ID bracelet, bed and alarms, visiting hours, pain management, procedures, bathroom and other care routines, personal items, smoking policy, room service/diet, and visiting hours. Valuables list has been completed. Information on how to activate the Rapid Response Team has been discussed. Patient/Family are encouraged to report perceived risks to care and to ask questions if they do not understand what they are told or what they should do.
[2020-01-31] MEDS: LACTATED RINGERS 1,000 ML 100 ML IV CONT (19:05)
[2020-01-31] MEDS: ENOXAPARIN 30 MG/0.3 ML SYRINGE SUB-Q (21:00)
[2020-02-01] VITALS (16 sets, daily range): BP systolic 126–206; BP diastolic 62–102; PULSE 42–89; RESP 12–28; TEMP 36.1–36.9; O2SAT 97–100
[2020-02-01 06:24] LABS: Hemoglobin 12.4 g/dL (12.0-15.0); Mean Corpuscular HGB Conc 32.6 g/dl (32-36); Mean Corpuscular Hemoglobin 32.3 pg (26-34); Mean Platelet Volume 10.3 fl (7.4-10.4); Platelet Count Result 240 k/mm3 (150-375); Red Blood Count 3.84 M/mm3 (4.2-5.4); Red Cell Distribution Width 13.9 % (11.5-14.5); White Blood Count 8.4 K/mm3 (4.5-10.0)
[2020-02-01 06:42] LABS: Alanine Aminotransferase 28 U/L (4-35); Albumin Level 3.7 g/dL (3.5-5.1); Alkaline Phosphatase 92 U/L (38-126); Anion Gap 7 mmol/L (8-16); Aspartate Amino Transferase 36 U/L (14-36); Bilirubin,Total 0.2 mg/dL (0.2-1.3); Blood Urea Nitrogen 13 mg/dL (7-17); Carbon Dioxide 24 mmol/L (22-30); Chloride 105 mmol/L (98-107); Estimated CRCL calculation 102 ml/min; Estimated Glomerular Filt Rate > 60; Glucose 113 mg/dL (65-105); Potassium 4.5 mmol/L (3.4-5.0); Sodium 136 mmol/L (137-145)
--- NOTE | 2020-02-01 07:32 | WPDANESPN ---
Anes - Prog Note Post-Op Date/Time: 02/01/20 07:32 Cardiovascular status: normal Respiratory status: normal Airway patency: baseline Mental status: baseline Post-Op hydration status: normal Vital Signs: Last Vital Signs Temp 36.1 C L 02/01/20 04:00 Pulse 52 L 02/01/20 04:00 Resp 20 02/01/20 04:00 BP 132/68 02/01/20 04:00 Pulse Ox 99 02/01/20 04:00 I/O: Intake & Output 01/31/20 01/31/20 02/01/20 15:59 23:59 07:59 Intake Total 262 294 5093 Balance 809 219 7277 Laboratory Tests 02/01/20 05:56 02/01/20 05:56 01/31/20 02/01/20 02/01/20 12:31 05:56 05:56 WBC 8.4 RBC 3.84 L Hgb 12.4 Hct 38.0 MCV 99.0 MCH 32.3 MCHC 32.6 RDW 13.9 Plt Count 240 MPV 10.3 Sodium 136 L Potassium 4.5 Chloride 105 Carbon Dioxide 24 Anion Gap 7 L BUN 13 Creatinine 0.70 Estim Creat Clear Calc 102 Estimated GFR > 60 Glucose 113 H Calcium 9.0 Total Bilirubin 0.2 Direct Bilirubin 0.0 AST 36 ALT 28 Alkaline Phosphatase 92 Total Protein 7.0 Albumin 3.7 Amylase 60 Post-procedural complaints: none Patient Feedback: Patient satisfied with anesthetic care.
[2020-02-01] MEDS: PANTOPRAZOLE 40 MG TABLET PO (09:47)
--- NOTE | 2020-02-01 12:47 | PC.NURSE ---
Report called to GI Lab.
--- NOTE | 2020-02-01 13:37 | WPDANESEPPF ---
Anes - Initial Pre Proc Eval Procedure: Operation Date: 01/31/20 12:00 Proposed Procedures p Laparoscopic Cholecystectomy With Introperative Cholangiogram, Possible Open - Lon Gonzales DO Operation Date: 02/01/20 14:15 Proposed Procedures p Endoscopic Retro Cholangiopancreatogram - Allan Bernal MD Date/Time: 02/01/20 13:37 Surgeon: Lon Gonzales DO Pre Op Diagnosis: Symptomatic Cholelithiasis, pancreatitis Patient Data Age: 59 Gender: F Height: 5 ft 6 in Weight: 124.2 kg Last Vital Signs Temp 98.4 F 02/01/20 12:00 Pulse 88 02/01/20 12:00 Resp 14 02/01/20 12:00 BP 132/80 02/01/20 12:00 Pulse Ox 97 02/01/20 12:00 Allergies Allergy/AdvReac Type Severity Reaction Status Date / Time strawberry Allergy Mild Rash Verified 01/31/20 12:56 Home Medications Medication Instructions Recorded Confirmed Type pantoprazole [Protonix] 40 mg PO QAM 28 Days #28 tablet 11/22/19 01/31/20 Rx ondansetron HCl [Zofran] 4 mg PO Q6H PRN #10 tablet 01/17/20 01/31/20 Rx oxycodone-acetaminophen [Percocet] 1 tablet PO Q6H PRN #20 tablet 01/17/20 01/31/20 Rx Laboratory Tests 02/01/20 02/01/20 05:56 05:56 WBC 8.4 K/mm3 K/mm3 (4.5-10.0) RBC 3.84 M/mm3 L M/mm3 (4.2-5.4) Hgb 12.4 g/dL g/dL (12.0-15.0) Hct 38.0 % % (37.0-47.0) MCV 99.0 fl fl (80-100) MCH 32.3 pg pg (26-34) MCHC 32.6 g/dl g/dl (32-36) RDW 13.9 % % (11.5-14.5) Plt Count 240 k/mm3 k/mm3 (150-375) MPV 10.3 fl fl (7.4-10.4) Sodium 136 mmol/L L mmol/L (137-145) Potassium 4.5 mmol/L mmol/L (3.4-5.0) Chloride 105 mmol/L mmol/L (98-107) Carbon Dioxide 24 mmol/L mmol/L (22-30) Anion Gap 7 mmol/L L mmol/L (8-16) BUN 13 mg/dL mg/dL (7-17) Creatinine 0.70 mg/dL mg/dL (0.7-1.0) Estim Creat Clear Calc 102 ml/min ml/min Estimated GFR > 60 (59 - ) Glucose 113 mg/dL H mg/dL (65-105) Calcium 9.0 mg/dL mg/dL (8.4-10.2) Total Bilirubin 0.2 mg/dL mg/dL (0.2-1.3) Direct Bilirubin 0.0 mg/dL mg/dL (0-0.3) AST 36 U/L U/L (14-36) ALT 28 U/L U/L (4-35) Alkaline Phosphatase 92 U/L U/L (38-126) Total Protein 7.0 g/dL g/dL (6.3-8.2) Albumin 3.7 g/dL g/dL (3.5-5.1) Patient hx anesthesia problems: none Family hx anesthesia problems: none PMFSH Past Medical History Medical History Acute pancreatitis BMI 40.0-44.9, adult DVT prophylaxis Elevated lipase GERD (gastroesophageal reflux disease) History of acute pancreatitis Hypertension Hypertension Nausea & vomiting Symptomatic cholelithiasis Tobacco abuse Surgical History Surgical History H/O: section Family History Family History Mother Cerebrovascular accident Dementia Father Heart disease CHF (congestive heart failure) Sibling Malignant neoplasm of prostate Other Heart disease Cerebrovascular accident Hypertension Cancer Social History Social History Smoking packs per day: 1 Smoking cigarettes per day: 20.0 Years smoked: 40 Smoking pack-years: 40.00 Smoking status: Current every day smoker Tobacco type: cigarettes Second hand tobacco smoke exposure: No Alcohol intake: never Substance use: never Living arrangements: with family Gender identity (if verbalized by the patient): Female Spiritual care concerns: No Anes - Eval Final PreProcedure Day of Procedure 02/01/20 13:37 Patient weight: morbidly obese Heart: regular rate and rhythm Lungs: clear to auscultation Airway: Mallampati scale class III Neurological: alert and oriented Last oral i
[2020-02-01] MEDS: LACTATED RINGERS 1,000 ML 150 ML IV CONT (14:09)
--- NOTE | 2020-02-01 14:24 | PC.NURSE ---
To GI Lab via stretcher. Voiding without difficulty.
--- NOTE | 2020-02-01 14:39 | WPDGICN ---
Assessment and Plan Assessment and plan (1) Symptomatic cholelithiasis: Code(s): K80.20 - Calculus of gallbladder without cholecystitis without obstruction Status: Acute Assessment and Plan: yesterday lap omar without complications (2) Choledocholithiasis: Code(s): K80.50 - Calculus of bile duct without cholangitis or cholecystitis without obstruction Status: Acute Assessment and Plan: possible filling defect in distal bile duct, will proceed with ercp to assess bile duct liver enzymes normal today (3) History of pancreatitis: Code(s): Z87.19 - Personal history of other diseases of the digestive system Status: Acute Assessment and Plan: several weeks ago had gallstone pancreatitis (4) Hypertension: Code(s): I10 - Essential (primary) hypertension Status: Acute (5) Morbidly obese: Code(s): E66.01 - Morbid (severe) obesity due to excess calories Status: Acute GI Consult Note Consult date/time: 02/01/20 14:39 Reason for consult: filling defect in bile duct during recent IOC HPI: Teresa Dhillon is a 59 year old female with recent hospitalization at [facility] in October for pancreatitis. CT abd/pelvis with contrast on 11/20/19 showed cholelithiasis, U/S showed cholelithiasis with mild gallbladder wall thickening. CBD measured 5mm. Yesterday she underwent laparoscopic cholecystectomy by Dr Bond, gallbladder was slightly distended, cystic duct appeared normal in size but intraoperative cholangiogram showed common bile duct with possible filling defect at the distal common bile duct. Contrast did flow beyond this and into the duodenum. She is doing ok today and recovering from surgery, no nausea or vomiting. CBC, CMP and amylase normal. Review of Systems Constitutional: Constitutional: Denies headache(s) and Denies weakness Eyes: Eyes: Denies blurry vision ENT: Reports Normal hearing present, Denies headache(s) and Denies neck pain Cardiovascular: Cardiovascular: Denies chest pain and Denies dyspnea Respiratory: Respiratory: Denies dyspnea Gastrointestinal: Gastrointestinal: Reports no additional gastrointestinal complaints Genitourinary: Genitourinary: Denies dysuria Musculoskeletal: Musculoskeletal: Denies neck pain Integumentary/Breasts: Skin/Breast: Denies dry skin Neurologic: Reports Normal hearing present, Denies headache(s) and Denies weakness Psychiatric: Psychiatric: Denies anxiety Endocrine: Endocrine: Denies change in body appearance Hematologic/Lymphatic: Hematologic/Lymphatic: Denies easy bleeding Allergic/Immunologic: Allergic/Immunologic: Denies urticaria PMFSH Past Medical History Medical History Acute pancreatitis BMI 40.0-44.9, adult DVT prophylaxis Elevated lipase GERD (gastroesophageal reflux disease) History of acute pancreatitis Hypertension Hypertension Nausea & vomiting Symptomatic cholelithiasis Tobacco abuse Surgical History Surgical History H/O: section Family History Family History Mother Cerebrovascular accident Dementia Father Heart disease CHF (congestive heart failure) Sibling Malignant neoplasm of prostate Other Heart disease Cerebrovascular accident Hypertension Cancer Social History Social History Smoking packs per day: 1 Smoking cigarettes per day: 20.0 Years smoked: 40 Smoking pack-years: 40.00 Smoking status: Current every day smoker Tobacco type: cigarettes Second hand tobacco smoke exposure: No Alcohol intake: never Substance use: never Living arrangements: with family Gender identity (if verbalized by the patient): Female Spiritual care concerns: No Meds Home Medications and
[2020-02-01] MEDS: INDOMETHACIN 50 MG SUPP.RECT RECTAL (15:36)
--- NOTE | 2020-02-01 16:37 | PC.NURSE ---
Returned from GI Lab via stretcher.
[2020-02-01] MEDS: ENOXAPARIN 30 MG/0.3 ML SYRINGE SUB-Q (20:35)
--- NOTE | ~2020-02-02 | XR_ITS ---
EXAMINATION: XR cholangiogram surg 1st inj DATE: 01/31/2020 14:14 INDICATION: Intraoperative evaluation during laparoscopic cholecystectomy TECHNIQUE: Multiple fluoroscopic images of the right upper quadrant were obtained during intraoperati ve cholangiography. The amount of fluoroscopy time used during this procedure was 0.5 minutes. COMPARISON: None. FINDINGS: Cannulation of the cystic duct demonstrates contrast opacification extending to the cystic duct into the common bile duct with an abrupt transition with concave meniscus sign at the distalmost duct suggesting a partially obstructing stone measuring approximately 3 x 5 mm. Contrast extends int o the duodenum and normal-appearing central intrahepatic biliary tree. There is reflux of a small cathi unt of contrast into the main pancreatic duct. IMPRESSION: 1. Filling defect consistent with an approximately 3 x 5 mm partially obstructing stone at the distal most common bile duct. Reviewed, dictated and finalized at location B. IMPRESSION: 1. Filling defect consistent with an approximately 3 x 5 mm partially obstructi ng stone at the distalmost common bile duct.
--- NOTE | ~2020-02-02 | XR_ITS ---
XR ERCP DATE: 02/01/2020 15:43 INDICATION: Cholelithiasis. Laparoscopic cholecystectomy on 01/31/2020. TECHNIQUE: Multiple spot C-arm images of the right upper quadrant during endoscopic procedure 131.1 seconds fluoroscopy time 1.50 mGym2 COMPARISON: 01/17/2020 CT abdomen pelvis 01/17/2020 right upper quadrant abdominal ultrasound FINDINGS: Meniscus sign associated with an apparent filling defect is demonstrated at the distal comm on bile duct, suggesting distal choledocholithiasis, with proximal bile duct dilatation. Subsequent i mage shows resolution of the filling defect and meniscus sign. Recommend correlation with ERCP findin gs/report. IMPRESSION: Probable distal choledocholithiasis, likely resolved by ERCP; recommend correlation with ERCP findings/report Reviewed, dictated and finalized at [facility]. Reviewed, dictated and finalized at location A. IMPRESSION: Probable distal choledocholithiasis, likely resolved by ERCP; recom mend correlation with ERCP findings/report
[2020-02-02 04:56] VITALS: BP 145/78; PULSE 79; RESP 16; TEMP 37.1; O2SAT 97
--- NOTE | 2020-02-02 07:44 | WPDANESPN ---
Anes - Prog Note Post-Op Date/Time: 02/02/20 07:44 Cardiovascular status: normal Respiratory status: normal Airway patency: baseline Mental status: baseline Post-Op hydration status: normal Vital Signs: Last Vital Signs Temp 98.7 F 02/02/20 04:56 Pulse 79 02/02/20 04:56 Resp 16 02/02/20 04:56 BP 145/78 H 02/02/20 04:56 Pulse Ox 97 02/02/20 04:56 I/O: Intake & Output 02/01/20 02/01/20 02/02/20 15:59 23:59 07:59 Intake Total 0 150 Balance 0 150 Laboratory Tests 02/01/20 05:56 02/01/20 05:56 Post-procedural complaints: none Patient Feedback: Patient satisfied with anesthetic care.
--- NOTE | 2020-02-02 09:52 | WPDGIPROGNO ---
Progress Note: A&P Assessment and Plan (1) Symptomatic cholelithiasis: Code(s): K80.20 - Calculus of gallbladder without cholecystitis without obstruction Status: Acute Assessment and Plan: she had lap omar and yesterday ercp, did not find filling defect but performed sphincterotomy with balloon sweep, good bile flow and clean duct advance diet and probably can go home today denies pain or nausea (2) Choledocholithiasis: Code(s): K80.50 - Calculus of bile duct without cholangitis or cholecystitis without obstruction Status: Acute (3) Morbidly obese: Code(s): E66.01 - Morbid (severe) obesity due to excess calories Status: Acute Subjective Date/time seen: 02/02/20 09:52 Interval history: denies pain or nausea, tolerated diet Review of Systems Review of Systems: All systems reviewed & are unremarkable except as noted in HPI and below Exam Const: General: comfortable and no acute distress HENMT: General nose exam: Normal nares present Eyes: General: appearance normal, both eyes and all related structures Neck: Neck: no JVD Resp: Auscultation: clear to auscultation bilaterally Cardio: Rate: regular rate Rhythm: regular rhythm GI: Inspection: non-distended GI Palp: Yes Soft to palpation Skin: General skin exam: normal color Neuro: General: gait normal Speech: normal speech Extrem: General: normal to inspection Psych: Mental Status: mental status grossly normal Objective Data Vital Signs Vital Signs: Vital Signs - 24 hr 02/01/20 12:00 02/01/20 14:03 02/01/20 15:42 Temperature 98.4 F 97.7 F 97.2 F L Pulse Rate 88 47 L 75 Respiratory Rate 14 15 28 H Blood Pressure 132/80 144/62 H 126/101 H Pulse Oximetry 97 98 100 02/01/20 15:52 02/01/20 16:02 02/01/20 16:12 Temperature 97.2 F L Pulse Rate 63 67 59 L Respiratory Rate 22 H 22 H 20 Blood Pressure 176/97 H 161/77 H 206/94 H Pulse Oximetry 100 99 98 02/01/20 16:22 02/01/20 16:50 02/01/20 17:45 Temperature 97.2 F L Pulse Rate 55 L 42 L Respiratory Rate 22 H 12 Blood Pressure 158/94 H 154/102 H 159/87 H Pulse Oximetry 97 98 02/01/20 20:56 02/02/20 04:56 Temperature 97.1 F L 98.7 F Pulse Rate 54 L 79 Respiratory Rate 14 16 Blood Pressure 176/78 H 145/78 H Pulse Oximetry 98 97 Intake/Output Intake/Output: Intake & Output 01/30/20 01/31/20 02/01/20 02/02/20 23:59 23:59 23:59 23:59 Intake Total 600 1150 480 Balance 600 1150 480 Meds/Results Medications: Active Medications Generic Name Dose Route Start Last Admin Trade Name Freq PRN Reason Stop Dose Admin Acetaminophen 500 mg 01/31/20 18:15 Tylenol Tablet PO Q6H PRN Mild Pain (1-3) or Fever Hydrocodone Bitart/Acetaminophen 1 tab 01/31/20 18:15 01/31/20 23:06 [place] 5-325 Mg PO 1 tab Q4H PRN Administration Pain Rated 4-6 Hydrocodone Bitart/Acetaminophen 1 tab 01/31/20 18:15 [place] 7.5-325 Mg PO Q4H PRN Pain Rated 7-10 Enoxaparin Sodium 30 mg 01/31/20 21:00 02/01/20 20:35 Lovenox SUB-Q 30 mg Q12HR NELSON Administration Hydromorphone HCl 0.5 mg 01/31/20 18:15 Dilaudid Inj IV PUSH Q2H PRN Pain Rated 4-6 Hydromorphone HCl 1 mg 01/31/20 18:15 Dilaudid Inj IV PUSH Q2H PRN Pain Rated 7-10 Ondansetron HCl 4 mg 01/31/20 18:15 Zofran Inj IV PUSH Q4H PRN Nausea And Vomiting Pantoprazole Sodium 40 mg 02/01/20 09:00 02/01/20 09:47 Protonix PO 40 mg QAM NELSON Administration Radiology Results: ITS Impressions Cholangiogram,Operative 01/31/20 14:18 IMPRESSION: 1. Filling defect consistent with an approximately 3 x 5 mm partially obstructing stone at the distalmost common bile duct. Endo Retro Cholangiopancreatogram 02/01/20 23:16 IMPRESSION: Probable distal choledocholithiasis, likely resolved by ERCP; recommend correlation with ERCP findings/report
[2020-02-02] MEDS: PANTOPRAZOLE 40 MG TABLET PO (10:21)
[2020-02-02] MEDS: ENOXAPARIN 30 MG/0.3 ML SYRINGE SUB-Q (10:21)
--- NOTE | 2020-02-02 13:40 | PM.DS ---
DS: Admitting Diagnosis Admitting Diagnosis Admitting Diagnosis: Symptomatic Cholelithiasis, pancreatitis DS: Discharge Diagnosis Discharge Diagnosis (1) Symptomatic cholelithiasis: Code(s): K80.20 - Calculus of gallbladder without cholecystitis without obstruction Status: Acute (2) History of pancreatitis: Code(s): Z87.19 - Personal history of other diseases of the digestive system Status: Acute (3) Morbidly obese: Code(s): E66.01 - Morbid (severe) obesity due to excess calories Status: Acute (4) Hypertension: Code(s): I10 - Essential (primary) hypertension Status: Acute (5) Tobacco abuse: Code(s): Z72.0 - Tobacco use Status: Acute DS: Summary Hospital Course Reason for hospitalization: Gallstone pancreatitis Hospital Course: This is a 59-year-old woman who has a prior history of gallstone pancreatitis and was hospitalized up in [place] in October. She recovered from that episode and was seen in follow-up. She now presents for laparoscopic cholecystectomy. Laparoscopic cholecystectomy with intraoperative cholangiogram was performed on 01/30. The cholangiogram showed evidence of a possible filling defect in the distal common bile duct. She was then admitted to the hospital for further treatment. Dr. Barnes was consulted for possibly ERCP. Patient underwent ERCP on 02/01/2020. Her diet was then advanced after the ERCP. She was tolerating a low-fat diet and her pain was well controlled. She remained otherwise hemodynamically stable. She was then discharged on 02/01. Time spent discussing smoking cessation with patient: 3 to 10 minutes Status at Discharge Functional status at discharge: independent ambulation Overall status at discharge: patient is progressing back to baseline Time Spent with Patient Time attestation: Total time spent providing and/or coordinating discharge services: Time spent: Less than 30 minutes Exam Const: General: no acute distress Limitations: no limitations Neck: Neck: supple and no JVD Resp: Effort & Inspection: normal respiratory effort Auscultation: clear to auscultation bilaterally Cardio: Rate: regular rate Rhythm: regular rhythm GI: GI Palp: Yes Soft to palpation and Yes Tenderness to palpation present (GI) (Slight incisional tenderness) Percussion: Yes normal to percussion Auscultation: normal bowel sounds Skin: General skin exam: normal color Extrem: General: normal to inspection Psych: Appearance: grossly normal Mental Status: mental status grossly normal Speech and movement: Normal speech and movement present DS: Data Data Completed and Pending Completed studies during hospitalization: Pending at discharge 01/31/20 13:46 Surgical [PTH] Routine Imaging Radiologist's impression: ITS Impressions Cholangiogram,Operative 01/31/20 14:18 IMPRESSION: 1. Filling defect consistent with an approximately 3 x 5 mm partially obstructing stone at the distalmost common bile duct. Endo Retro Cholangiopancreatogram 02/01/20 23:16 IMPRESSION: Probable distal choledocholithiasis, likely resolved by ERCP; recommend correlation with ERCP findings/report Discharge Plan Discharge Attending physician on discharge: Lon Rodriguez Consulting providers: Allan Bernal Discharging Clinician: Lon Rodriguez Patient Disposition: Home, Self-Care Activity: other - see discharge instructions Diet: other - see discharge instructions Wound Care Instructions: other - see discharge instructions Discharge Instructions: DISCHARGE INSTRUCTION SHEET FOR HERNIA, GALLBLADDER AND APPENDIX SURGERIES DR. RODRIGUEZ PATIENT TO TAKE HOME 1. May shower, no soaking in bath x 2weeks. 2. Call office for: Wound increasingly painful or bleeding Vomiting Fever of greater than 101 degrees 3. If no bowel movement for three days, take 1 oz. (30 ml) Milk of Magnesia or MiraLax 1
== END 2020-02-02 15:03 | disposition home or self-care (01) ==
PROVIDERS: Internal Medicine Gastroenterology; Admitting Provider Surgery; PCP Internal Medicine; Visit Provider Surgery
PROC: 0FT44ZZ Resection of Gallbladder, Percutaneous Endoscopic Approach (ICD-10-PCS; CPT 47562; principal; 2020-01-31 12:00)
PROC: (CPT 43260; principal; 2020-02-01 14:15)
DX: K80.20 Calculus of gallbladder without cholecystitis without obstruction (principal); K80.50 Calculus of bile duct without cholangitis or cholecystitis without obstruction; E66.01 Morbid (severe) obesity due to excess calories; I10 Essential (primary) hypertension; F17.210 Nicotine dependence, cigarettes, uncomplicated; R93.2 Abnormal findings on diagnostic imaging of liver and biliary tract; Z68.41 Body mass index [BMI] 40.0-44.9, adult
CPT/HCPCS: 43260; 47563; 36415; 74300; 74329; 80048; 80076; 82150; 85027; 88304; A9270; G0378; G0379; J0330; J0690; J1100; J1170; J1650; J1885; J2001; J2250; J2405; J2704; J2710; J3010; J7120; Q9966

== ENCOUNTER 2020-10-17 14:13 | Outpatient (CLI) | payer MEDICARE, SELFPAY ==
--- NOTE | ~2020-10-17 | XR_ITS ---
EXAMINATION: XR shoulder LT min 2V DATE: 10/17/2020 14:44 INDICATION: Left shoulder pain. TECHNIQUE: 4 views of left shoulder were obtained. COMPARISON: None. FINDINGS: Bone alignment is normal. No fracture. There is moderate osteoarthritis of glenohumeral margarito nt and acromioclavicular joint. IMPRESSION: 1. Polyarticular osteoarthritis. Reviewed, dictated and finalized at location A.
--- NOTE | ~2020-10-17 | CT_ITS ---
EXAMINATION: CTA chest PE protocol, CT abdomen pelvis wo con EXAM DATE: 10/17/2020 17:25 (accession [id number]), 10/17/2020 17:24 (accession [id number]) INDICATION: SOB, Positive D-Dimer SOB, elevated DDimer, low abd pain. TECHNIQUE: Spiral CT of the abdomen and pelvis was then performed without contrast injection. Axia l, coronal and sagittal reformatted images were reviewed. Spiral CTA of the chest (pulmonary arterie s) was performed with 100 cc Omnipaque 350 intravenous contrast injection. Images were acquired dur ing the pulmonary arterial phase. Coronal maximum intensity projection 3D-reconstructions were creat ed by the technologist on dedicated workstation. Axial, coronal and sagittal reformatted images were reviewed. The dose-length product (DLP) for this examination was 1103.06 (accession [id number]), 1344.23 (accession [id number]) mGy-cm. The exposure was tailored according to patient size (au to mA exposure control), and iterative reconstruction (ASIR) was used as additional dose reduction te chnique. There is no prior study for comparison. FINDINGS: CHEST: Pulmonary arteries are well opacified and without intraluminal filling defects. No thoracic aortic dissection. The lungs are clear. There are no pleural or pericardial effusions. Tracheob ronchial tree is patent. There is no mediastinal, hilar or axillary lymphadenopathy. There is no pneumothorax. Heart normal in size. There is mild coronary arterial calcification, arterial scler osis. ABDOMEN PELVIS: The liver, spleen, adrenal glands and pancreas are unremarkable. There are cholecyst ectomy clips. There is no nephrolithiasis or hydronephrosis. The uterus is anteverted and morpholo gically normal. The bladder is unremarkable. There is no retroperitoneal or pelvic lymphadenopathy . There is mild to moderate scattered arteriosclerotic disease. The appendix is normal. There is mild sigmoid diverticulosis. Moderate amount of perisigmoid inflamma tion, probably uncomplicated acute diverticulitis. Although findings above are most consistent with a cute diverticulitis, rarely inflammatory cancer can have a similar appearance. Therefore recommend tr eating patient for acute diverticulitis and then obtaining a 2-4 week followup abdomen pelvis CT. Alt ernatively, if patient has not had recent colonoscopy, followup colonoscopy could be considered. The stomach and small bowel are unremarkable. There is expected amount of colonic stool. No free i ntraperitoneal gas. There are no osteoblastic or osteolytic lesions identified. IMPRESSION: 1. Perisigmoid inflammation, most likely acute uncomplicated diverticulitis. Less likely inflammato ry cancer. Recommendation above. 2. No acute cardiopulmonary findings. Reviewed, dictated and finalized at location A. IMPRESSION: 1. Perisigmoid inflammation, most likely acute uncomplicated diverticulitis. Less likely inflammatory cancer. Recommendation above. 2. No acute cardiopulmonary findings.
[2020-10-17 14:30] LABS: Basophils Absolute Auto 0.06 K/mm3 (0.00-0.10); Basophils Percent Auto 0.7 % (0.0-1.0); Eosinophils Percent Auto 1.1 % (1.0-6.0); Hematocrit 39.6 % (35.0-49.0); Hemoglobin 12.9 g/dL (12.0-15.0); Immature Granulocyte Absolute 0.03 K/mm3 (0.00-0.00); Immature Granulocyte Percent A 0.3 % (0.0-0.0); Lymphocytes Percent Auto 35.6 % (18.0-42.0); Mean Corpuscular HGB Conc 32.6 g/dL (32.0-36.0); Mean Corpuscular Hemoglobin 32.4 pg (27.0-31.0); Mean Corpuscular Volume 99.5 fL (78.0-102.0); Mean Platelet Volume 9.5 fl (9.2-11.8); Monocytes Absolute Auto 0.61 K/mm3 (0.10-0.90); Neutrophils Absolute Auto 4.8 K/mm3 (1.7-7.2); Neutrophils Percent Auto 55.3 % (50.0-70.0); Platelet Count Result 287 K/mm3 (150-420); Red Blood Count 3.98 M/mm3 (4.20-5.40); Red Cell Distribution Width 13.9 % (11.6-14.4); White Blood Count 8.7 K/mm3 (4.8-10.8)
[2020-10-17 14:37] LABS: Add Urine Microscopic? NO; Appearance Urine Clear (Clear); Bilirubin Urine Negative (Negative); Blood Urine Negative (Negative); Color Urine Yellow (Yellow); Glucose Urine UA Negative (Negative); Ketones Urine Negative (Negative); Leukocyte Esterase Ur Negative (Negative); Nitrate Urine Negative (Negative); Protein Urine Negative (Negative); Specific Grav Ur 1.015 (1.010-1.020); Urobilinogen Urine 0.2 mg/dL (0.2-1.0)
[2020-10-17 14:53] LABS: D Dimer 1.35 mg/L (0.19-0.50)
[2020-10-17 14:57] LABS: Alanine Aminotransferase 21 U/L (14-59); Albumin Level 3.4 g/dL (3.4-5.0); Alkaline Phosphatase 112 U/L (46-116); Amylase 29 U/L (25-115); Anion Gap 9 mmol/L (8-16); Aspartate Amino Transferase 15 U/L (15-37); Bilirubin,Total 0.3 mg/dL (0.00-1.00); Blood Urea Nitrogen 10 mg/dL (7-18); CRP 7.5 mg/dL (0.0-0.9); Calcium 8.7 mg/dL (8.5-10.1); Carbon Dioxide 28 mmol/L (21-32); Chloride 103 mmol/L (98-108); Estimated Glomerular Filt Rate > 60; Glucose 97 mg/dL (70-99); Lipase 37 U/L (73-393); Osmolality Calculated 289 mOsm/kg (285-295); Potassium 4.4 mmol/L (3.5-5.1); Sodium 140 mmol/L (136-145); Total Protein 7.4 g/dL (6.4-8.2)
== END 2020-10-17 14:14 | disposition home or self-care (01) ==
PROVIDERS: PCP Internal Medicine; Visit Provider Nurse Practitioner Family
DX: R10.9 Unspecified abdominal pain (principal); R06.02 Shortness of breath; R79.1 Abnormal coagulation profile; M25.512 Pain in left shoulder
CPT/HCPCS: 36415; 71275; 73030; 74176; 80053; 81003; 82150; 83690; 84550; 85025; 85380; 86140; 87086; 87088; Q9967

== ENCOUNTER 2021-06-20 12:46 | Outpatient (CLI) | payer MEDICARE, SELFPAY ==
--- NOTE | ~2021-06-20 | MM_ITS ---
EXAMINATION: MM screening arvind BI w ayana HISTORY: Screening TECHNIQUE: Craniocaudal and mediolateral oblique 3-D tomosynthesis images were obtained and synthetic 2-D images were generated. CAD analysis was submitted and interpreted. COMPARISON: No prior mammogram is available for comparison at this institution. BREAST PARENCHYMAL COMPOSITION: There are scattered areas of fibroglandular density. FINDINGS: There is no evidence of suspicious mass, calcification, or architectural distortion to sugg est malignancy in either breast. There has been no suspicious interval change. IMPRESSION: 1. No mammographic evidence of malignancy. 2. Recommend routine screening mammography in one year. BI-RADS Category 1: Negative Reviewed, dictated and finalized at location A. [facility] [employer]
--- NOTE | ~2021-06-20 | CT_ITS ---
EXAMINATION: CT lung screening DATE: 06/20/2021 13:52 INDICATION: PERSONAL HX OF NICOTINE DEPENDENCE hx of nicotine dependence TECHNIQUE: Computed tomography (CT) of the chest was performed without intravenous contrast. Addition al 3D reconstructions utilizing coronal maximum intensity projection (MIP) were performed. Automated exposure control and iterative reconstruction technique were employed. The dose-length product was 43 9.34 mGy-cm. COMPARISON: 10/17/2020 FINDINGS: Again seen are multiple small bilateral pulmonary nodules, the largest measuring up to 4 mm in the ma jority appearing calcified consistent with old granulomatous disease. Several of the <3 mm nodules ar e not definitively calcified. No pneumonia, pulmonary edema or pleural effusion. Heart size is normal . Atherosclerotic coronary artery calcific location. Small amount of aortic valve calcification. No p ericardial effusion. Thoracic aorta is normal in caliber. No pathologically enlarged thoracic lymphad enopathy. Mild to moderate scattered degenerative skeletal changes. IMPRESSION: 1. Lung-RADS category 2: Benign appearance or behavior. Continue annual screening with noncontrast lo w-dose chest CT in 12 months. Reviewed, dictated and finalized at location A. ON CLASSER AIDE IMPRESSION: 1. Lung-RADS category 2: Benign appearance or behavior. Continue annual screeni ng with noncontrast low-dose chest CT in 12 months.
== END 2021-06-20 12:47 | disposition home or self-care (01) ==
LOC: CHSIMG 12:49
PROVIDERS: PCP Internal Medicine; Visit Provider Internal Medicine
DX: Z12.31 Encounter for screening mammogram for malignant neoplasm of breast (principal); Z12.2 Encounter for screening for malignant neoplasm of respiratory organs; Z87.891 Personal history of nicotine dependence
CPT/HCPCS: 71271; 77063; 77067

== ENCOUNTER 2023-03-10 15:29 | Outpatient (CLI) | payer MEDICARE, SELFPAY ==
--- NOTE | ~2023-03-10 | XR_ITS ---
Left Shoulder Technique: AP and scapular Y views were obtained. Clinical History: Pain Findings: No fracture or dislocation is seen. There is mild degenerative change of the AC joint and m oderate degenerative change of the glenohumeral joint. Soft tissues are unremarkable. Impression: Degenerative changes, as detailed above. Reviewed, dictated and finalized at location M. Impression: Degenerative changes, as detailed above.
--- NOTE | ~2023-03-10 | XR_ITS ---
Cervical Spine: AP, lateral, open-mouth views Clinical History: Pain Findings: The normal lordotic curve is maintained. No fracture or subluxation is identified. There is moderate to advanced degenerative disc change at C5-C6 and C6-C7. There are facet joint degenerative changes throughout the cervical spine. Pre-vertebral soft tissues are unremarkable. Impression: Moderate degenerative spondylosis, as above. Reviewed, dictated and finalized at location . Impression: Moderate degenerative spondylosis, as above.
--- NOTE | ~2023-03-10 | XR_ITS ---
Right Shoulder Technique: AP and scapular Y views were obtained. Clinical History: Pain Findings: No fracture or dislocation is seen. The glenohumeral joint demonstrates mild degenerative c hange. There is moderate AC joint degenerative change. Soft tissues are unremarkable. Impression: Degenerative changes, as detailed above. Reviewed, dictated and finalized at location . Impression: Degenerative changes, as detailed above.
[2023-03-10 15:50] LABS: Basophils Absolute Auto 0.08 K/mm3 (0.00-0.10); Basophils Percent Auto 0.8 % (0.0-1.0); Eosinophils Absolute Auto 0.12 K/mm3 (0.02-0.50); Eosinophils Percent Auto 1.3 % (1.0-6.0); Hematocrit 45.5 % (35.0-49.0); Hemoglobin 14.8 g/dL (12.0-15.0); Immature Granulocyte Absolute 0.05 K/mm3 (0.00-0.00); Immature Granulocyte Percent A 0.5 % (0.0-0.0); Lymphocytes Absolute Auto 2.58 K/mm3 (1.10-4.50); Lymphocytes Percent Auto 27.2 % (18.0-42.0); Mean Corpuscular HGB Conc 32.5 g/dL (32.0-36.0); Mean Corpuscular Hemoglobin 34.1 pg (27.0-31.0); Mean Corpuscular Volume 104.8 fL (78.0-102.0); Monocytes Absolute Auto 0.59 K/mm3 (0.10-0.90); Monocytes Percent Auto 6.2 % (2.0-11.0); Neutrophils Absolute Auto 6.1 K/mm3 (1.7-7.2); Nucleated Red Blood Cells Absolute Auto 0.07 K/mm3 (0.00-0.00); Nucleated Red Blood Cells Perc 0.7 % (0-0.0); Platelet Count Result 305 K/mm3 (150-420); Red Blood Count 4.34 M/mm3 (4.20-5.40); Red Cell Distribution Width 13.7 % (11.6-14.4); White Blood Count 9.5 K/mm3 (4.8-10.8)
[2023-03-10 16:14] LABS: Alanine Aminotransferase 22 U/L (14-59); Albumin Level 3.6 g/dL (3.4-5.0); Alkaline Phosphatase 117 U/L (46-116); Anion Gap 15 mmol/L (8-16); Aspartate Amino Transferase 22 U/L (15-37); Bilirubin,Total 0.5 mg/dL (0.00-1.00); Blood Urea Nitrogen 7 mg/dL (7-18); CRP 0.6 mg/dL (0.0-0.9); Calcium 9.3 mg/dL (8.5-10.1); Carbon Dioxide 20 mmol/L (21-32); Chloride 105 mmol/L (98-108); Estimated Glomerular Filt Rate > 60; Glucose 113 mg/dL (70-99); Osmolality Calculated 289 mOsm/kg (285-295); Potassium 4.5 mmol/L (3.5-5.1); Sodium 140 mmol/L (136-145); Thyroid Stimulating Hormone 2.19 uIU/mL (0.36-3.74); Total Protein 7.1 g/dL (6.4-8.2)
== END 2023-03-10 15:30 | disposition home or self-care (01) ==
LOC: CHSLAB 15:34
PROVIDERS: PCP Internal Medicine; Visit Provider Internal Medicine
DX: M54.2 Cervicalgia (principal); M25.512 Pain in left shoulder; M25.511 Pain in right shoulder; I10 Essential (primary) hypertension; M43.02 Spondylolysis, cervical region
CPT/HCPCS: 36415; 72050; 73030; 80053; 84443; 85025; 86140